=== PATIENT | male | born 1960 | race Caucasian/White ===

== ENCOUNTER 2020-05-30 11:49 | Outpatient (CLI) | payer BC, SELFPAY ==
[2020-05-30 12:59] VITALS: BMI 32.1
--- NOTE | 2020-05-30 13:00 | ECG_ITS ---
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 Interpretive Statements NAME OF STUDY: LEXISCAN SESTAMIBI STRESS TEST INDICATION: A fib; chf; shortness of breath NOTE: Please note that this is the electrocardiogram portion of the Lexiscan/Sestamibi stress test. The perfusion scan will be documented separately. DATA: Baseline heart rate was 107 beats per minute. Baseline blood pressure was 137/80 millimeters of mercury. Target heart rate was 162. Maximum heart rate achieved was 201. which was 124 % of the predicted target heart rate. Maximum blood pressure was 188/99 millimeters of mercury. The reason for ending the test was completion of the protocol. The patient did not experience any symptoms. ELECTROCARDIOGRAM: BASELINE: Atrial fibrillation. Normal axis. Otherwise, no ST-T changes suggestive of ischemia noted. No arrhythmia noted. EXERCISE: After Lexiscan injection, no ST-T changes suggestive of ischemic noted. No arrhythmia noted. CONCLUSION: Please note due to baseline abnormality of the EKG specificity and sensitivity of the EKG portion of LexiScan MIBI stress test will be low 1. EKG not suggestive of ischemia 2. Lexiscan injection unremarkable. 3. Perfusion scan will be documented separately. Electronically Signed On 06-09-2020 23:56:40 CDT by Penny Rich M.D. [id number]
[2020-05-30 13:20] VITALS: BP 153/84; PULSE 107
== END 2020-05-30 11:50 | disposition home or self-care (01) ==
LOC: CDL 11:52
PROVIDERS: PCP Family Medicine; Visit Provider Internal Medicine Cardiovascular Disease
DX: R06.02 Shortness of breath (principal); I48.91 Unspecified atrial fibrillation; I50.9 Heart failure, unspecified
CPT/HCPCS: 93017